=== PATIENT | male | born 1970 | race Two or more races ===

== ENCOUNTER 2021-07-13 20:25 | Emergency (ER) | payer SELFPAY ==
[~2021-07-13] VITALS: Ht 170.2 cm; Wt 67.2 kg
--- NOTE | 2021-07-13 22:07 | RAD ---
4 view left knee dated 07/13/2021. COMPARISON: None. INDICATION: Pain FINDINGS: 4 views left knee show normal bony alignment. No displaced fracture. No periostitis or bone destructi on. No apparent joint effusion or loose body. IMPRESSION: No acute findings. Electronically signed by: Rui Wagoner MD (07/13/2021 10:04 PM) [facility]
[2021-07-13] MEDS ORDERED: ACETAMINOPHEN 500 MG TABLET PO ONE (22:30)
[2021-07-13] MEDS ORDERED: KETOROLAC 60 MG/2 ML VIAL. IM ONE (22:30)
--- NOTE | 2021-07-13 22:46 | PHYS DOC ---
Past Medical History Past Surgical History: No Surgical History General Adult EDM: Chief Complaint: KNEE INJURY HPI: HPI: Patient is a 50-year-old male who presents emergency department complaining of left knee pain for the past week. Patient states he can feel it grinds when he flexes and extends it. 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 Patient denies traumatic injury to his left knee. Patient denies numbness or tingling distal to his knee pain. Patient reports he tried taking avep-ezr-[id number] pain medications off and on throughout the week with minimal relief in pain. Patient currently rates his left knee pain a 7 out of 10. Patient denies other physical complaints or physical concerns. Review of Systems: Review of Systems: 14 body systems of review of systems have been reviewed. See HPI for pertinent positives and negative responses, otherwise all other systems are negative, nonpertinent or noncontributory. Constitutional: Negative except as outlined in HPI above. Skin: Negative except as outlined in HPI above. Eyes: Negative except as outlined in HPI above. HENT: Negative except as outlined in HPI above. Respiratory: Negative except as outlined in HPI above. Cardiovascular: Negative except as outlined in HPI above. GI: Negative except as outlined in HPI above. : Negative except as outlined in HPI above. Musculoskeletal: Negative except as outlined in HPI above. Integument: Negative except as outlined in HPI above. Neurologic: Negative except as outlined in HPI above. Endocrine: Negative except as outlined in HPI above. Lymphatic: Negative except as outlined in HPI above. Psychiatric: Negative except as outlined in HPI above. Heart Score: C/O Chest Pain: No Risk Factors: Risk Factors: DM, Current or recent (<one month) smoker, HTN, HLP, family history of CAD, obesity. Risk Scores: Score 0 - 3: 2.5% MACE over next 6 weeks - Discharge Home Score 4 - 6: 20.3% MACE over next 6 weeks - Admit for Clinical Observation Score 7 - 10: 72.7% MACE over next 6 weeks - Early Invasive Strategies Current Medications: Current Medications Medications (Trade) Dose Ordered Sig/Lee Start Time Stop Time Status Last Admin Dose Admin Acetaminophen (Tylenol) 1,000 mg 1X ONCE 07/13/21 22:30 07/13/21 22:31 DC 07/13/21 22:03 1,000 MG Ketorolac Tromethamine (Toradol Im) 60 mg 1X ONCE 07/13/21 22:30 07/13/21 22:31 DC 07/13/21 22:03 60 MG Allergies: Allergies: Allergies Coded Allergies Type Severity Reaction Last Updated Verified No Known Drug Allergies 07/13/21 No Physical Exam: PE: Constitutional: Well developed, well nourished, no acute distress, non-toxic appearance. 50-year-old male in no apparent distress. HENT: Normocephalic, atraumatic. Eyes: Conjunctiva normal, no discharge. Neck: Normal range of motion, no stridor. Cardiovascular: No cyanosis appreciated, distal cap refill less than 2 seconds. Lungs & Thorax: Patient is in no respiratory distress, no audible adventitious lung sounds appreciated. Abdomen: Nontender, no abnormalities noted. Skin: Warm, dry, no erythema, no rash. Back: No tenderness, no deformities. Extremities: No tenderness, no cyanosis, no clubbing, ROM intact, no edema. Except for left knee, pain to palpation over kneecap, there is no visual discrepancies or injuries, there is no crepitus appreciated, no swelling appreciated, no skin discoloration appreciated, there is no swelling or edema appreciated. Satisfactory knee stability tests. Distal cap refill is less than 2 seconds equal bilateral lower extremities, 2+ dorsalis pedis pulses equal bilateral. Neurologic: Alert and oriented X 3, normal motor function, normal sensory function, no focal deficits noted. Psychologic: Affect normal, judgement normal, mood normal. Current Patient Data: Vital Signs: Vital Signs Date Time Temp Pulse Resp B/P (MAP) Pulse Ox O2 Delivery O2 Flow Rate FiO2 07/13/21 20:45 98.3 72 18 139/78 (98) 97 Room Air 98.3 EKG: EKG: [] Radiology/Procedures: Radiology/Procedures: REASON: Knee pain nontraumatic PROCEDURE: KNEE LEFT 4V 4 view left knee dated 07/13/2021. COMPARISON: None. INDICATION: Pain FINDINGS: 4 views left knee show normal bony alignment. No displaced fracture. No periostitis or bone destruction. No apparent joint effusion or loose body. IMPRESSION: No acute findings. Electronically signed by: Rui Wagoner MD (07/13/2021 10:04 PM) [facility] [place] Course & Med Decision Making: Course & Med Decision Making Pertinent Labs and Imaging studies reviewed. (See chart for details) 50-year-old male, vital signs reviewed, presents emergency department concerning left knee pain. Physical examination concerning for overuse injury. Will order x-ray, give pain medication. X-ray unremarkable, discussed findings with patient, will prescribe ibuprofen for pain, recommended to patient follow-up with primary care this week, will give recommendations for area healthcare clinics and physicians. 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 I suspect this may be early arthritic changes or overuse injury. Patient gave verbal understanding of and is amenable to ED discharge planning. Discussed with the patient all findings and diagnostic testing as well as the need to follow-up with their primary care provider for further evaluation and treatment or return to the ED if any new or worsening symptoms. Strict return precautions were also discussed at length, the patient voiced understanding and agreement with the discharge planning. The patient was nontoxic in appearance, in no apparent distress, and hemodynamically stable at the time of disposition. Patient is Syriac-speaking, all interactions with patient were performed with house trimmer press clippings [employer] Disclaimer: [employer] Disclaimer: This electronic medical record was generated, in whole or in part, using a voice recognition dictation system. Departure Departure Impression: Primary Impression: Knee joint pain Qualified Codes: M25.561 - Pain in right knee; M25.562 - Pain in left knee Disposition: HOME / SELF CARE / HOMELESS Condition: GOOD Referrals: NO PCP (PCP) Patient Instructions: Knee Pain, Knee Problems, Questions and Answers Additional Instructions: Lo vieron hoy en el departamento de emergencias por dolor de rodilla en la rodilla izquierda. Se realiz marilyn radiografa y no mostr ningn hallazgo preocupante de fractura o inflamacin de la articulacin de la rodilla. No hubo signos preocupantes de infeccin de la articulacin de la rodilla. Sospecho que debido al tipo de trabajo que realiza en la construccin y al trabajar de rodillas, es posible que est desarrollando un sndrome de uso excesivo o artritis de las rodillas. Eric comentamos, compre buenos dispositivos de proteccin para las rodillas que puede encontrar en cualquier riddhi de reparacin del hogar, eric [employer] o [employer]. Le estoy recetando un antiinflamatorio, tmelo segn las indicaciones. Devonte christina tiempo, elija y asegure marilyn abdelrahman con marilyn clnica del zheng o un mdico/mdico de atencin mdica. Regrese al departamento de emergencias si los sntomas empeoran u otras inquietudes. Carole por visitar nuestro Departamento de Emergencias. Fue un placer atenderlo hoy en el departamento de emergencias y le agradecemos que nos haya confiado gonzales atencin. Si surge algn problema adicional, no dude en volver a visitarnos. Rafael un seguimiento con gonzales proveedor de atencin primaria para que puedan planificar atencin adicional si es necesario y conocer el problema que tuvo. Si los sntomas empeoran, regrese al Departamento de Emergencias. Cualquier sntoma preocupante que comience, eric dolor en el pecho, falta de aire, debilidad o entumecimiento en un lado del cuerpo, fiebre kait o cualquier otro sntoma preocupante, regresa a la demario de emergencias. You were seen today in the emergency department for knee pain of the left knee. An x-ray was performed and did not show any concerning findings of fracture or swelling of the knee joint. There were no concerning signs of infection of the knee joint. I suspect because of the type of work you do with construction and working on your knees, that you may be developing an overuse syndrome or arthritis of the knees. As we discussed, please purchase good knee protection devices that you may find at any home repair store such as [employer] or [employer]. I am prescribing you an anti-inflammatory, please take as directed. During this time please choose and secure an appointment with an area clinic or healthcare physician/doctor. Please return to the emergency department for worsening symptoms or other concerns. Thank you for visiting our Emergency Department. It was a pleasure taking care of you today in the emergency department and we appreciate you trusting us with your care. If any additional problems come up don't hesitate to return to visit us. Please follow up with your primary care provider so they can plan additional care if needed and know about the problem that you had. If symptoms worsen come back to the Emergency Department. Any concerning symptoms that start such as chest pain, shortness of air, weakness or numbness on one side of the body, running high fevers or any other concerning symptoms return to the ER. [facility] [address] [place] [address] [facility] [address] [place] [address] [facility] [address] [facility] [address] [facility] [address] [place] [address] [facility] [address] [place] [address] [facility] [address] [place] [address] [facility] [address] [place] [address] [facility] [address] [place] [address] [facility] [address] [place] [address] [facility] [address] [place] [address] Scripts Ibuprofen (IBUPROFEN) 600 Mg Tablet 600 MG PO PRN Q6HRS PRN for INFLAMMATION, #90 TAB 0 Refills Prov: RUI LOWE APRN 07/13/21 RUI LOWE APRN Jul 13, 2021 22:46
[2021-07-13] MEDS ORDERED: IBUP-1007 PO (23:16)
[2021-07-13 23:22] VITALS: BP 162/82
== END 2021-07-13 23:22 | disposition home or self-care (01) ==
LOC: ER 20:25
DX: M25.562 Pain in left knee (principal); M25.561 Pain in right knee
CPT/HCPCS: 73564; 96372; 99283; J1885